=== PATIENT | male | born 1975 | race Caucasian/White ===

== ENCOUNTER 2021-07-13 09:06 | Outpatient (CLI) | payer BC | END 2021-07-13 20:15 | disposition home or self-care (01) | LOC: SUS 09:06 | DX: N43.3 Hydrocele, unspecified (principal); N50.3 Cyst of epididymis; N39.0 Urinary tract infection, site not specified; N31.9 Neuromuscular dysfunction of bladder, unspecified; N39.43 Post-void dribbling | CPT/HCPCS: 76770; 76870-TC ==